=== PATIENT | male | born 1965 | race Caucasian/White ===

== ENCOUNTER 2024-12-07 07:14 | Inpatient (IN) | payer BC, OTHER ==
[~2024-12-07] VITALS: Ht 175.3 cm; Wt 113.4 kg
[2024-12-07 07:44] LABS: BASOPHILS % 0.4 % (0.0-2.0); EOSINOPHILS % 1.9 % (0.0-5.0); HEMATOCRIT. 51.4 % (42.0-52.0); HEMOGLOBIN. 16.8 g/dL (14.0-18.0); LYMPHOCYTES % 22.8 % (20.0-50.0); MEAN CORPUSCULAR HEMOGLOBIN 31.2 pg (28.0-32.0); MEAN CORPUSCULAR HGB CONC 32.8 g/dL (31.0-37.0); MEAN CORPUSCULAR VOLUME 95.2 fL (80.0-94.0); MEAN PLATELET VOLUME 8.7 fl (7.4-10.4); MONOCYTES % 5.9 % (2.0-8.0); PLATELET 203 x1000/uL (130-400); RED CELL DISTRIBUTION WIDTH 13.8 % (11.6-14.6); WHITE BLOOD COUNT 7.6 x1000/uL (4.5-11.0)
[2024-12-07 07:52] LABS: CHLORIDE 102 mEq/L (98-107); POTASSIUM 3.8 mEq/L (3.5-5.1); SODIUM 137 mEq/L (136-145)
[2024-12-07 07:53] LABS: CARBON DIOXIDE 24 mEq/L (21-32)
[2024-12-07 07:54] LABS: CALCIUM 9.7 mg/dL (8.7-10.4)
[2024-12-07 07:58] LABS: GLUCOSE 147 mg/dL (70-105)
[2024-12-07 07:59] LABS: UREA NITROGEN BLOOD 13 mg/dL (9-23)
[2024-12-07 08:05] LABS: TROPONIN I HIGH SENSITIVITY 239 ng/L (3.0-53)
[2024-12-07] MEDS: ENOXAPARIN 100MG/ML SYR SUBCUT ONE (08:34)
[2024-12-07 08:41] LABS: TROPONIN I HIGH SENSITIVITY 228 ng/L (3.0-53)
[2024-12-07 10:15] VITALS: BP 98/68; PULSE 68; RESP 18; TEMP 36.7; O2SAT 100
[2024-12-07 10:30] VITALS: BP 98/68; PULSE 68; RESP 18; TEMP 36.8
[2024-12-07] MEDS ORDERED: EMPA10TA PO (11:02)
[2024-12-07] MEDS ORDERED: ATOR-2 PO (11:02)
[2024-12-07] MEDS ORDERED: METO-539 PO (11:02)
[2024-12-07] MEDS ORDERED: EPLE25TA22 PO (11:02)
[2024-12-07] MEDS ORDERED: EZET10TA81 PO (11:02)
[2024-12-07] MEDS ORDERED: LOSA50TA41 MT (11:02)
[2024-12-07] MEDS ORDERED: ALPR0.25 PO (11:02)
[2024-12-07] MEDS ORDERED: LOSA50TA41 PO (11:02)
[2024-12-07] MEDS ORDERED: ASPI-1406 PO (11:02)
[2024-12-07] MEDS ORDERED: PRAS10TA9 PO (11:02)
[2024-12-07 12:00] VITALS: BP 112/68; PULSE 64; RESP 18; TEMP 36.9; O2SAT 96
[2024-12-07] MEDS ORDERED: DEXTROSE 50% WATER 50ML SYRINGE IV PRN (13:15)
[2024-12-07] MEDS: BLOOD SUGAR DIAGNOSTIC STRIP TEST SCH (13:21)
[2024-12-07] MEDS: INSULIN LISPRO 100 UNITS/ML SUBCUT SCH (13:29)
[2024-12-07] MEDS ORDERED: HYDRALAZINE 20MG/ML VIAL IV PRN (13:30)
[2024-12-07] MEDS ORDERED: ZOLPIDEM TARTRATE 5MG TABLET PO PRN (13:30)
[2024-12-07] MEDS ORDERED: ACETAMINOPHEN 325MG TABLET PO PRN ×2 (13:30)
[2024-12-07] MEDS ORDERED: ALPRAZOLAM 0.5 MG TABLET PO PRN (13:30)
[2024-12-07] MEDS ORDERED: MAGNESIUM/ALUMINUM HYDROXIDE/SIMETHICONE 30ML UDC PO PRN (13:30)
[2024-12-07] MEDS ORDERED: CLONIDINE 0.1MG TABLET PO PRN (13:30)
[2024-12-07] MEDS ORDERED: ONDANSETRON HCL 4MG/2ML INJ IV PRN (13:30)
[2024-12-07] MEDS: SODIUM CHLORIDE 0.9% 3ML FLUSH IVF SCH (13:53)
[2024-12-07] MEDS: ALPRAZOLAM 0.5 MG TABLET PO NR (13:59)
[2024-12-07 16:00] VITALS: BP 104/64; PULSE 55; RESP 20; TEMP 36.7; O2SAT 94
[2024-12-07 17:48] LABS: TROPONIN I HIGH SENSITIVITY 210 ng/L (3.0-53)
[2024-12-07] MEDS ORDERED: ATROPINE SULFATE 1MG/ML VIAL IV PRN (19:22)
[2024-12-07 20:00] VITALS: BP 98/59; PULSE 54; RESP 18; TEMP 36.5; O2SAT 100
[2024-12-07] MEDS ORDERED: ENOXAPARIN 40MG/0.4ML SYR SUBCUT SCH (21:00)
[2024-12-07] MEDS ORDERED: LOSARTAN 50 MG TABLET PO SCH (21:00)
[2024-12-07] MEDS: METOPROLOL TARTRATE 50MG TABLET PO SCH (21:00)
[2024-12-07] MEDS: LOSARTAN 50 MG TABLET PO SCH (21:00)
[2024-12-07] MEDS: ATORVASTATIN CALCIUM 40MG TABLET PO SCH (21:14)
[2024-12-07] MEDS: ENOXAPARIN 30MG/0.3ML SYR SUBCUT SCH (21:14)
[2024-12-08] VITALS: BP 100/59; PULSE 57; RESP 18; TEMP 36.5; O2SAT 99
[2024-12-08 00:34] LABS: TROPONIN I HIGH SENSITIVITY 204 ng/L (3.0-53)
[2024-12-08 04:00] VITALS: BP 117/69; PULSE 59; RESP 18; TEMP 36.5; O2SAT 99
[2024-12-08 07:59] LABS: BASOPHILS % 0.5 % (0.0-2.0); EOSINOPHILS % 2.4 % (0.0-5.0); HEMATOCRIT. 50.8 % (42.0-52.0); HEMOGLOBIN. 16.5 g/dL (14.0-18.0); MEAN CORPUSCULAR HGB CONC 32.5 g/dL (31.0-37.0); MEAN CORPUSCULAR VOLUME 95.5 fL (80.0-94.0); MEAN PLATELET VOLUME 9.2 fl (7.4-10.4); NEUTROPHILS % 61.1 % (40.0-76.0); PLATELET 158 x1000/uL (130-400); RED BLOOD CELL COUNT 5.32 mill/uL (4.7-6.1); RED CELL DISTRIBUTION WIDTH 13.6 % (11.6-14.6); WHITE BLOOD COUNT 5.2 x1000/uL (4.5-11.0)
[2024-12-08 08:00] VITALS: BP 132/69; PULSE 54; RESP 18; TEMP 36.5; O2SAT 97
[2024-12-08 08:00] LABS: CALCIUM 9.4 mg/dL (8.7-10.4); CARBON DIOXIDE 22 mEq/L (21-32); CHLORIDE 107 mEq/L (98-107); POTASSIUM 4.3 mEq/L (3.5-5.1); SODIUM 138 mEq/L (136-145)
[2024-12-08 08:05] LABS: CREATININE 0.9 mg/dL (0.6-1.3); GLUCOSE 117 mg/dL (70-105)
[2024-12-08 08:06] LABS: TRIGLYCERIDE 147 mg/dL (0-150)
[2024-12-08 08:07] LABS: CHOLESTEROL 71 mg/dL (<200); HDL CHOLESTEROL 38 mg/dL (>55); LDL CHOLESTEROL 16 mg/dL (5-100); UREA NITROGEN BLOOD 12 mg/dL (9-23)
[2024-12-08 08:42] LABS: TROPONIN I HIGH SENSITIVITY 213 ng/L (3.0-53)
[2024-12-08] MEDS: ASPIRIN 81MG EC TABLET PO SCH (08:43)
[2024-12-08] MEDS: EZETIMIBE 10MG TABLET PO SCH (08:43)
[2024-12-08] MEDS: EMPAGLIFLOZIN 10MG TABLET PO SCH (08:44)
[2024-12-08 10:49] VITALS: BP 133/68; PULSE 53; TEMP 98.1; O2SAT 100
[2024-12-08] MEDS ORDERED: METOPROLOL TARTRATE 25MG TABLET PO SCH (21:00)
== END 2024-12-08 11:10 | disposition home or self-care (01) | DRG 303 ==
LOC: ER 07:14 → 8WST 08:15 → EDBEDREQSVC 09:05
PROVIDERS: ADMIT Internal Medicine; ATTEND Internal Medicine
DX: I25.110 Atherosclerotic heart disease of native coronary artery with unstable angina pectoris (principal); F41.0 Panic disorder [episodic paroxysmal anxiety]; I10 Essential (primary) hypertension; E11.9 Type 2 diabetes mellitus without complications; Z79.84 Long term (current) use of oral hypoglycemic drugs; I25.2 Old myocardial infarction; E78.00 Pure hypercholesterolemia, unspecified; Z87.891 Personal history of nicotine dependence; G47.33 Obstructive sleep apnea (adult) (pediatric); Z79.02 Long term (current) use of antithrombotics/antiplatelets; Z79.82 Long term (current) use of aspirin; Z79.899 Other long term (current) drug therapy; Z95.5 Presence of coronary angioplasty implant and graft
CPT/HCPCS: 36415; 71045; 80048; 80061; 82962; 83036; 83735; 84484; 85025; 93005; 99291; G0378; J1650; J1815